=== PATIENT | female | born 1970 | race Caucasian/White ===

== ENCOUNTER 2016-12-06 06:02 | Day surgery (SDC) | payer MEDICAID ==
[2016-12-03 10:34] LABS: HEMATOCRIT 31.2 % (36.0-48.0); HEMOGLOBIN 8.9 g/dL (12-16); MCH 19.3 pg (26.0-34.0); MCHC 28.5 g/dL (31.0-37.0); MCV 67.8 fL (80.0-100.0); PLATELET COUNT 182 10x3/uL (130-400); RDW 18.1 % (11.5-14.5); WBC 4.8 10x3/uL (4.8-10.8)
[~2016-12-06] VITALS: Ht 175.3 cm; Wt 135.6 kg
[2016-12-06 06:05] VITALS: BP 148/92; Ht 175.3 cm; Wt 135.6 kg
[2016-12-06 06:30] LABS: HEMATOCRIT 31.3 % (36.0-48.0); HEMOGLOBIN 8.8 g/dL (12-16); MCH 19.4 pg (26.0-34.0); MCHC 28.1 g/dL (31.0-37.0); MCV 68.9 fL (80.0-100.0); PLATELET COUNT 195 10x3/uL (130-400); RBC 4.54 10x6/uL (4.00-5.40); RDW 18.4 % (11.5-14.5); WBC 4.8 10x3/uL (4.8-10.8)
[2016-12-06] MEDS ORDERED: HYDROCODONE-APA1 TAB PO (08:20)
--- NOTE | 2016-12-06 11:01 | NUR ---
4718 DISCHARGE INSTRUCTIONS REVIEWED WITH PATIENT; VERBALIZED UNDERSTANDING
--- NOTE | 2016-12-10 14:19 | OP ---
PATIENT NAME: LUDA SALINAS MEDICAL RECORD: [id number] :74 LOCATION:[facility] ADMISSION DATE: SURGEON: SHASHA PAGE MD DATE OF OPERATION: 12/06/2016 PREOPERATIVE DIAGNOSIS: Loose body of the left knee. POSTOPERATIVE DIAGNOSES: 1. Loose body of the left knee. 2. Lateral meniscus tear of the left knee. 3. 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 INTRAOPERATIVE FINDINGS: The patient had a large loose body that was removed and sent to pathology. The patient also had a lateral meniscus tear and portion of loose body, had made several areas of chondromalacia that seemed to be dramatically induced by the loose body. OPERATIVE SUMMARY IN DETAIL: After obtaining the appropriate preoperative orthopedic surgery consent as well as anesthetic consultation, evaluation and clearance, the patient was brought to the operating room and placed on the operating table in supine position. After general laryngeal mask was administered, tourniquet was placed about the proximal aspect of the left lower extremity. Left lower extremity was then prepped and draped in routine sterile fashion. The leg was elevated and exsanguinated, tourniquet inflated to 350 mmHg. Routine inferolateral portal was established followed by superomedial portal and inferomedial portal. Diagnostic arthroscopy found immediately this large loose body that was approximately 5 mm x 5 mm. This was grasped by the grasper and taken out in its entirety, unfortunately breaking the grasper in doing so; however, the remainder of the knee scope showed the patient to have a complex tear of the posterior horn of the lateral meniscus. An arthroscopic resector along with a meniscotome were utilized to debride the meniscus back to stable meniscal elements. Having completed this, the knee was insufflated with 30 cc of 0.25% Marcaine with epinephrine and 40 mg of Depo-Medrol. Arthroscopy portals were closed in routine interrupted fashion using 4-0 Prolene. Sterile dressings were applied. The patient was awakened and taken to the recovery room in stable condition. All final needle and sponge counts were correct. TRANSINT:[id number] Voice Confirmation ID: [id number] DOCUMENT ID: [id number] SHASHA PAGE MD at 1419 CC: [id number] DICTATION DATE: 12/10/1624 PC INSTALLATION ENGINEER: 12/10/16 125[address] [facility] 12/06/[address] [facility] [address] [facility] [address]
== END 2016-12-06 10:45 | disposition home or self-care (01) ==
LOC: D.OPS 06:02 → D.PAN 09:20 → D.OPS 10:45 → D.PAN 11:30 → D.OPS 11:30
PROVIDERS: Anesthesiology; Orthopaedic Surgery
DX: M23.42 Loose body in knee, left knee (principal); Z01.812 Encounter for preprocedural laboratory examination; S83.282A Other tear of lateral meniscus, current injury, left knee, initial encounter; X58.XXXA Exposure to other specified factors, initial encounter; M94.262 Chondromalacia, left knee

== ENCOUNTER 2017-02-09 05:50 | Day surgery (SDC) | payer OTHER ==
[2017-02-07 12:28] LABS: BASOPHILS 1.2 % (0-2); EOSINOPHILS 6.7 % (0-7); HEMATOCRIT 38.3 % (36.0-48.0); HEMOGLOBIN 11.1 g/dL (12-16); IMMATURE GRANULOCYTES 0.2 % (0-5); LYMPHOCYTES 26.3 % (15-50); MCH 20.8 pg (26.0-34.0); MCV 71.9 fL (80.0-100.0); MONOCYTES 9.6 % (2-11); RBC 5.33 10x6/uL (4.00-5.40); RDW 22.4 % (11.5-14.5); WBC 4.9 10x3/uL (4.8-10.8)
[2017-02-07 12:49] LABS: CALC OSMOLALITY 279 mosm/kg (275-300); CALCIUM 8.4 mg/dL (8.5-10.1); CARBON DIOXIDE 24.2 mmol/L (21.0-32.0); CHLORIDE - SERUM 107 mmol/L (98-107); CREATININE - SERUM 0.7 mg/dL (0.6-1.3); GLUCOSE 95 mg/dL (74-106); POTASSIUM - SERUM 4.4 mmol/L (3.5-5.1); SODIUM 141 mmol/L (136-145); UREA NITROGEN 11 mg/dL (7-18); eGFR NON AFRICAN AMERICAN > 90 mL/min (90-120)
[2017-02-07 13:24] LABS: PLATELET COUNT 238 10x3/uL (130-400)
[~2017-02-09] VITALS: Ht 175.3 cm; Wt 131.5 kg
[~2017-02-09 05:50] MED LIST: EXCEDRIN EXTRA1 TAB PO; FERROUS SULFAT325 MG PO; HYDROCODONE-APA1 TAB PO; MULTI-DAY VITAM1 TAB PO
[2017-02-09 08:45] VITALS: BP 116/60; Ht 175.3 cm; Wt 131.5 kg
--- NOTE | 2017-02-09 13:56 | NUR ---
CONVERTED FROM LMA TO ET TUBE AT 1354
--- NOTE | 2017-02-09 16:53 | NUR ---
1615--PT VOIDS, IV DC'D. KARMEN MCGUIRE 0420--DISCHARGE INSTRUCTIONS GIVEN, PT VERBALIZES UNDERSTANDING. PT OFF UNIT VIA WC. KARMEN MCGUIRE
== END 2017-02-09 16:30 | disposition home or self-care (01) ==
LOC: OBSVTIME → D.SDCHOLD 05:50 → D.OPS 05:50 → D.SDCHOLD 05:50 → OBSVTIME 05:50 → EDSTATUS 10:45 → D.OPS 10:45 → D.SDCHOLD 10:45 → D.PAN 10:45 → D.SDCHOLD 11:15 → D.OPS 16:30
PROVIDERS: Obstetrics & Gynecology
DX: N92.0 Excessive and frequent menstruation with regular cycle (principal); D64.9 Anemia, unspecified; Z01.812 Encounter for preprocedural laboratory examination

== ENCOUNTER → 2017-07-20 14:57 | Outpatient (CLI) | payer OTHER ==
[2017-02-09 08:45] VITALS: BMI 42.9
[~2017-07-20 14:57] MED LIST changes: +EZFE 200200 MG PO
== END | disposition home or self-care (01) ==
LOC: D.MRI 14:57
DX: S83.231A Complex tear of medial meniscus, current injury, right knee, initial encounter (principal); X58.XXXA Exposure to other specified factors, initial encounter; Y93.89 Activity, other specified; Y92.89 Other specified places as the place of occurrence of the external cause; M25.561 Pain in right knee

== ENCOUNTER 2017-08-11 06:00 | Outpatient (CLI) | payer OTHER ==
[2017-02-09 08:45] VITALS: BMI 42.9
[~2017-08-11 06:00] MED LIST changes: -EZFE 200200 MG PO
[2017-08-11] MEDS ORDERED: HYDROCODONE-APA1 TAB PO (14:42)
[2017-08-11] MEDS ORDERED: EZFE 200200 MG PO (14:44)
[2017-08-11 15:11] LABS: HEMOGLOBIN 9.9 g/dL (12-16); MCH 20.8 pg (26.0-34.0); MCHC 29.1 g/dL (31.0-37.0); MCV 71.4 fL (80.0-100.0); MEAN PLATELET VOLUME 10.7 fL (7.4-10.4); RBC 4.76 10x6/uL (4.00-5.40); RDW 17.6 % (11.5-14.5); WBC 5.5 10x3/uL (4.8-10.8)
== END 2017-08-11 23:59 | disposition home or self-care (01) ==
LOC: D.OPS 06:00 → EDSTATUS 08-15 14:30 → D.PAN 08-15 14:30
PROVIDERS: Anesthesiology
DX: S83.241A Other tear of medial meniscus, current injury, right knee, initial encounter (principal); Z01.810 Encounter for preprocedural cardiovascular examination; Z01.811 Encounter for preprocedural respiratory examination; Z01.812 Encounter for preprocedural laboratory examination; Z53.9 Procedure and treatment not carried out, unspecified reason

== ENCOUNTER 2017-08-22 10:11 | Day surgery (SDC) | payer OTHER ==
[~2017-08-22] VITALS: Ht 175.3 cm; Wt 126.1 kg
--- NOTE | ~2017-08-22 | OP ---
PATIENT NAME: LUDA SALINAS MEDICAL RECORD: [id number] :74 LOCATION:[facility] ADMISSION DATE: SURGEON: SHASHA PAGE MD DATE OF OPERATION: 08/22/2017 PREOPERATIVE DIAGNOSES: 1. Medial meniscus tear of the right knee. 2. Lateral meniscus tear of the right knee. POSTOPERATIVE DIAGNOSES: 1. Medial meniscus tear of the right knee. 2. Lateral meniscus tear of the right knee. 3. 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 PROCEDURES: 1. Arthroscopic partial medial meniscectomy. 2. Arthroscopic partial lateral meniscectomy. SURGEON: Shasha Page MD ANESTHESIA: General. INTRAOPERATIVE COMPLICATIONS: None. SUMMARY OF PATHOLOGIC FINDINGS: The patient was found to have a complex tear of the posterior horn of the medial meniscus as well as a very complex tear of the posterior horn of the lateral meniscus. OPERATIVE SUMMARY IN DETAIL: After obtaining the appropriate preoperative orthopedic surgery consent as well as anesthetic consultation, evaluation, and clearance, the patient was brought to the operating room and placed on the operating table in supine position. After general laryngeal mask airway was administered, tourniquet was placed about the proximal aspect of the right lower extremity. Right lower extremity was then prepped and draped in routine sterile fashion. The leg was elevated and exsanguinated. Tourniquet was inflated to 350 mmHg. Routine inferolateral portal was established followed by superomedial portal and inferomedial portal. Diagnostic arthroscopy did reveal the patient to have the above findings. Attention was first turned to the medial aspect. A combination of meniscotome as well as arthroscopic resector was utilized to resect the complex tear of the posterior horn of the medial meniscus back to stable menisci. At this point, gentle chondroplasty was done of the medial femoral condyle. Minimal arthritis was seen, grade II at its worst on the medial tibial plateau. At this point, attention was turned to the lateral compartment. The patient had a large split radial tear with complex tear essentially right at the popliteal fossa, which was very unstable. Again, a combination of meniscotomes as well as arthroscopic resectors were utilized to debride the meniscus and smooth this down to the popliteal fossa. The posteromedial aspect of the lateral meniscus was debrided back essentially to the root. Having completed this, gentle chondroplasty was again performed on the lateral femoral condyle. At this point, the knee was insufflated with 30 cc of 0.25% Marcaine with epinephrine and 80 mg of Depo-Medrol. Arthroscopy portals were closed in routine interrupted fashion using 4-0 Prolene. Sterile dressings were applied. Tourniquet was deflated. The patient was awakened and taken to the recovery room in stable condition. All final needle and sponge OPERATIVE REPORT [id number] LUDA SALINAS counts were correct. TRANSINT:[id number] Voice Confirmation ID: [id number] DOCUMENT ID: [id number] KAYLEE FLORES, SHASHA MONROE at 0940 CC: [id number] DICTATION DATE: 08/22/17 1800 [employer] SALES COORDINATOR: 08/22/17 18[address] [facility] 08/22/17 [facility] [address] [place] [address]
[~2017-08-22 10:11] MED LIST changes: +EZFE 200200 MG PO
[2017-08-22 11:06] VITALS: Ht 175.3 cm; Wt 126.1 kg
[2017-08-22 11:22] LABS: HEMATOCRIT 32.1 % (36.0-48.0); HEMOGLOBIN 9.4 g/dL (12-16); MCHC 29.3 g/dL (31.0-37.0); MCV 71.8 fL (80.0-100.0); RBC 4.47 10x6/uL (4.00-5.40); WBC 3.1 10x3/uL (4.8-10.8)
[2017-08-22 11:25] LABS: PLATELET COUNT 184 10x3/uL (130-400)
[2017-08-22] MEDS ORDERED: HYDROCODONE-APA1 TAB PO (16:25)
== END 2017-08-22 19:05 | disposition home or self-care (01) ==
LOC: D.OPS 10:11 → D.PAN 14:45 → D.OPS 19:05
PROVIDERS: Anesthesiology
DX: S83.231A Complex tear of medial meniscus, current injury, right knee, initial encounter (principal); S83.271A Complex tear of lateral meniscus, current injury, right knee, initial encounter; M17.11 Unilateral primary osteoarthritis, right knee; M94.261 Chondromalacia, right knee; Z01.812 Encounter for preprocedural laboratory examination; X58.XXXA Exposure to other specified factors, initial encounter

== ENCOUNTER → 2018-08-23 15:46 | Outpatient (CLI) | payer MEDICAID ==
[2017-08-22 11:06] VITALS: BMI 41.1
== END | disposition home or self-care (01) ==
LOC: D.MRI 15:46
DX: M25.561 Pain in right knee (principal)

== ENCOUNTER 2018-09-25 14:48 | Emergency (ER) | payer MEDICAID ==
[~2018-09-25] VITALS: Ht 175.3 cm; Wt 129.5 kg
[2018-09-25 14:56] VITALS: Ht 175.3 cm; Wt 129.5 kg
[2018-09-25 15:25] LABS: APTT 28.4 SECONDS (22.8-39.4); INR 1.04 (0.85-1.17); PROTIME 13.1 SECONDS (11.6-15.0)
[2018-09-25 15:30] LABS: ALBUMIN 3.2 g/dL (3.4-5.0); ALKALINE PHOSPHATASE 121 U/L (46-116); ALT (SGPT) 28 U/L (10-68); BILIRUBIN - TOTAL 0.83 mg/dL (0.2-1.3); CALC OSMOLALITY 277 mosm/kg (275-300); CALCIUM 8.5 mg/dL (8.5-10.1); CARBON DIOXIDE 24.2 mmol/L (21.0-32.0); CHLORIDE - SERUM 103 mmol/L (98-107); CREATININE - SERUM 0.7 mg/dL (0.6-1.3); GLUCOSE 113 mg/dL (74-106); POTASSIUM - SERUM 3.5 mmol/L (3.5-5.1); PROTEIN - SERUM 7.3 g/dL (6.4-8.2); SODIUM 139 mmol/L (136-145); UREA NITROGEN 9 mg/dL (7-18); eGFR NON AFRICAN AMERICAN > 90 mL/min (90-120)
[2018-09-25 15:37] LABS: BASOPHILS 0.4 % (0-2); EOSINOPHILS 3.5 % (0-7); HEMATOCRIT 35.5 % (36.0-48.0); HEMOGLOBIN 10.6 g/dL (12-16); IMMATURE GRANULOCYTES 0.3 % (0-5); LYMPHOCYTES 15.3 % (15-50); MCH 21.3 pg (26.0-34.0); MCHC 29.9 g/dL (31.0-37.0); MCV 71.4 fL (80.0-100.0); MONOCYTES 9.6 % (2-11); NEUTROPHILS 70.9 % (40-80); PLATELET COUNT 206 10x3/uL (130-400); RBC 4.97 10x6/uL (4.00-5.40); RDW 23.3 % (11.5-14.5); WBC 7.5 10x3/uL (4.8-10.8)
[2018-09-25 15:40] LABS: CKMB 0.9 U/L (0.0-3.6); CREATINE KINASE 53 UL (21-215); MAGNESIUM - SERUM 1.6 mg/dL (1.8-2.4)
[2018-09-25 15:43] LABS: TROPONIN-I < 0.017 ng/mL (0.000-0.060)
[2018-09-25] MEDS ORDERED: VOLTAREN75 MG PO (19:13)
[2018-09-25] MEDS ORDERED: OMEPRAZOLE40 MG PO (19:13)
[2018-09-25 19:52] VITALS: BP 141/89
== END 2018-09-25 19:52 | disposition home or self-care (01) ==
LOC: D.ER 14:48
PROVIDERS: Emergency Medicine
DX: K21.9 Gastro-esophageal reflux disease without esophagitis (principal); M54.2 Cervicalgia

== ENCOUNTER 2018-12-20 09:05 | Emergency (ER) | payer SELFPAY ==
[~2018-12-20] VITALS: Ht 175.3 cm; Wt 137.4 kg
[~2018-12-20 09:05] MED LIST changes: +OMEPRAZOLE40 MG PO; +VOLTAREN75 MG PO
[2018-12-20 09:20] VITALS: Ht 175.3 cm; Wt 137.4 kg
[2018-12-20] MEDS ORDERED: KEFLEX500 MG PO (10:45)
[2018-12-20] MEDS ORDERED: MUPIROCIN22 GM TOPICAL (10:45)
[2018-12-20 11:18] VITALS: BP 130/80
== END 2018-12-20 11:19 | disposition home or self-care (01) ==
LOC: D.ER 09:05
DX: L03.115 Cellulitis of right lower limb (principal); T25.121A Burn of first degree of right foot, initial encounter; X10.2XXA Contact with fats and cooking oils, initial encounter; Y93.G3 Activity, cooking and baking; Y92.010 Kitchen of single-family (private) house as the place of occurrence of the external cause

== ENCOUNTER 2019-05-19 07:47 | Emergency (ER) | payer SELFPAY ==
[~2019-05-19] VITALS: Ht 175.3 cm; Wt 127.3 kg
[~2019-05-19 07:47] MED LIST changes: +KEFLEX500 MG PO; +MUPIROCIN22 GM TOPICAL
[2019-05-19 07:49] VITALS: Ht 175.3 cm; Wt 127.3 kg
[2019-05-19] MEDS ORDERED: DICLOFENAC SODI50 MG PO (07:54)
[2019-05-19 08:11] VITALS: BP 146/89
== END 2019-05-19 08:13 | disposition home or self-care (01) ==
LOC: D.ER 07:47
DX: M25.512 Pain in left shoulder (principal)

== ENCOUNTER 2020-01-03 12:01 | Emergency (ER) | payer OTHER, SELFPAY ==
[~2020-01-03] VITALS: Ht 175.3 cm; Wt 113.6 kg
[~2020-01-03 12:01] MED LIST changes: +DICLOFENAC SODI50 MG PO
[2020-01-03 12:10] VITALS: Ht 175.3 cm; Wt 113.6 kg
[2020-01-03 13:05] LABS: HCG URINE NEGATIVE (NEGATIVE)
[2020-01-03] MEDS ORDERED: ZANAFLEX4 MG PO (13:55)
[2020-01-03] MEDS ORDERED: MOBIC7.5 MG PO (13:55)
[2020-01-03 14:10] VITALS: BP 156/104
== END 2020-01-03 14:10 | disposition home or self-care (01) ==
LOC: D.ER 12:01
PROVIDERS: Emergency Medicine
DX: S16.1XXA Strain of muscle, fascia and tendon at neck level, initial encounter (principal); S46.811A Strain of other muscles, fascia and tendons at shoulder and upper arm level, right arm, initial encounter; S29.012A Strain of muscle and tendon of back wall of thorax, initial encounter; V89.2XXA Person injured in unspecified motor-vehicle accident, traffic, initial encounter; Y93.9 Activity, unspecified; Y92.9 Unspecified place or not applicable; K21.9 Gastro-esophageal reflux disease without esophagitis